=== PATIENT | male | born 1955 | race Native Hawaiian/Other Pacific Islander ===

== ENCOUNTER 2021-02-08 12:34 | Outpatient (CLI) | payer OTHER | END 2021-02-08 19:01 | disposition home or self-care (01) | LOC: US 12:34 | PROVIDERS: ATTEND Internal Medicine Cardiovascular Disease | DX: R09.89 Other specified symptoms and signs involving the circulatory and respiratory systems (principal) ==

== ENCOUNTER 2021-02-10 10:57 | Emergency (ER) | payer OTHER ==
[~2021-02-10] VITALS: Ht 175.3 cm; Wt 99.8 kg
[2021-02-10 11:04] VITALS: TEMP 97.8
[2021-02-10 12:19] VITALS: BP 120/76
== END 2021-02-10 12:16 | disposition home or self-care (01) ==
LOC: ED 10:57
PROC: 3E1CX8Z Irrigation of Eye using Irrigating Substance (ICD-10-PCS; principal; 2021-02-10)
DX: H10.211 Acute toxic conjunctivitis, right eye (principal); X58.XXXA Exposure to other specified factors, initial encounter; Y92.89 Other specified places as the place of occurrence of the external cause
CPT/HCPCS: 99282

== ENCOUNTER 2021-07-11 10:59 | Outpatient (CLI) | payer OTHER ==
[2021-07-11 11:25] LABS: PLATELET COUNT 170 K/uL (142-355)
[2021-07-11 11:30] LABS: POTASSIUM 3.9 mmol/L (3.6-5.2)
== END 2021-07-11 19:11 | disposition home or self-care (01) ==
LOC: LABW 10:59
PROVIDERS: ATTEND Internal Medicine Cardiovascular Disease
DX: Z79.899 Other long term (current) drug therapy (principal)
CPT/HCPCS: 36415; 80053; 80061; 85027